=== PATIENT | male | born 1955 | race Caucasian/White ===

== ENCOUNTER 2022-06-02 15:12 | Emergency (ER) | payer MEDICARE ==
[~2022-06-02 15:12] MED LIST: ASPIRIN EC81 MG PO; CERTAGEN1 EACH PO; CRESTOR5 MG PO; FLAX SEED OIL PO; LEXAPRO20 MG PO; LOVAZA1 GM PO; PERCOCET 5-3251 EACH PO; PRINIVIL20 MG PO; PROTONIX40 MG PO
== END 2022-06-02 16:46 | disposition home or self-care (01) ==
LOC: FER 15:12
DX: S01.01XA Laceration without foreign body of scalp, initial encounter (principal); I10 Essential (primary) hypertension; Z23 Encounter for immunization; W22.8XXA Striking against or struck by other objects, initial encounter; Y92.009 Unspecified place in unspecified non-institutional (private) residence as the place of occurrence of the external cause
CPT/HCPCS: 90471; 90715